=== PATIENT | female | born 2000 | race Asian ===

== ENCOUNTER 2022-12-18 01:23 | Emergency (ER) | payer OTHER, SELFPAY ==
[2022-12-18 01:23] VITALS: BP 124/73; PULSE 83; RESP 18; TEMP 36.9; O2SAT 99; BMI 21.1
--- NOTE | 2022-12-18 02:24 | ED.ANIMALBIT ---
HPI - Animal Bite General Chief Complaint: Animal Bite Stated Complaint: dog bite Time Seen by Provider: 12/18/22 01:45 Source: patient Mode of arrival: ambulatory Limitations: no limitations History of Present Illness complaint: animal bite Onset (ago): hour(s) (1) Animal: dog Description of animal: household pet Mechanism: bite Location: other Location - Extremities: left: hand Pain description: sharp Severity scale (1-10): 3 Context: other (Urine to get a sock out of the mouth) Associated symptoms: bleeding Related Data Patient tetanus UTD: Yes Previous Rx's Medication Instructions Recorded amoxicillin 875 mg-potassium 1 tab PO Q12H #10 tabs 12/18/22 clavulanate 125 mg tablet Allergies Allergy/AdvReac Type Severity Reaction Status Date / Time No Known Allergies Allergy Verified 12/18/22 01:32 Review of Systems Review of Systems: CONSTITUTIONAL: Denies weight loss, fever and chills. HEENT: Denies changes in vision and hearing. RESPIRATORY: Denies SOB and cough. CV: Denies palpitations no CP. GI: Denies abdominal pain, nausea, vomiting and diarrhea. : Denies dysuria and urinary frequency. MSK: Denies myalgia and joint pain. SKIN: Denies rash and pruritus. NEUROLOGICAL: Denies headache and syncope. PSYCHIATRIC: Denies recent changes in mood. Denies anxiety and depression. All other ROS are negative unless in HPI PMFSH Social History Social History Alcohol intake: never Smoked in Last 30 Days: No Use of substances other than those prescribed or required for medical reasons: No Advance Directives: No Advance Directives Information Provided: Yes Physical Exam ED Vital Signs: Vital Signs - 24 hr 12/18/22 01:23 Temperature 98.4 F Pulse Rate 83 Respiratory Rate 18 Blood Pressure 124/73 Pulse Oximetry 99 Oxygen Delivery Method Room Air BMI result Body Mass Index 21.1 GEN: Well developed, no acute distress, alert, oriented HEENT: Normocephalic, atraumatic, normal external ears, nose appears normal Eyes: Normal to appearance Neck: Supple, no lymphadenopathy Respiratory: Talks in complete sentences, no respiratory distress Extremities: No clubbing cyanosis or edema, neurovascular intact, linear laceration along the radial aspect of her right 2nd digit, superficial, able to flex and extend against resistance Neurologic: No focal neurologic deficits, cranial nerves 2-12 intact, gait normal Skin: No rash Medical Decision Making Medical Decision Making MDM Narrative: 22-year-old female presents with dog bite. Was a friend's dog that was vaccinated which is good until 2024. What provoked as they were trying to get something out of the dog's mouth. Unclear whether there is a history of aggressive behavior. Patient's tetanus vaccine is up-to-date. Will start the patient on some Augmentin prophylactically. They will watch for signs of infection. Animal control will be contacted. Differential Diagnosis Differential Diagnoses: The differential diagnosis associated with the presentation includes (Animal bite, abrasion, laceration) Prescription Management I considered prescription management with: Antibiotic Discharge Plan Discharge Clinical Impression: Dog bite Patient Disposition: Home, Self-Care Instructions: Animal Bite (ED) Prescriptions: New amoxicillin-pot clavulanate 875-125 mg tablet 1 tab PO Q12H Qty: 10 0RF Referrals: Physician,Unknown J [Primary Care Provider] - (Care provider)
[2022-12-18] MEDS: Amoxicillin/Potassium Clav 875 MG TABLET PO (02:40)
== END 2022-12-18 02:40 | disposition home or self-care (01) ==
PROVIDERS: Emergency Provider Emergency Medicine
DX: S60.470A Other superficial bite of right index finger, initial encounter (principal); W54.0XXA Bitten by dog, initial encounter; Y93.9 Activity, unspecified; Y92.9 Unspecified place or not applicable
CPT/HCPCS: 99283; 99284